=== PATIENT | male | born 1935 | race Caucasian/White ===

== ENCOUNTER 2016-10-11 04:57 | Inpatient (IN) | payer OTHER ==
[2016-09-21 14:04] VITALS: BMI 39.0
--- NOTE | 2016-09-21 14:44 | PAT Medication Instructions ---
Service Date Sep 21, 2016. Current Home Medication List Allopurinol (Zyloprim), 300 MG PO HS Amlodipine (Norvasc), 5 MG PO QAM Budesonide/Formoterol Fumarate (Symbicort 160/4.5 Inhaler ), 2 PUFFS INH BID Cyanocobalamin (Vitamin B-12), 1 TAB PO QAM Fish Oil ([place]-3), 1 CAP PO QAM Folic Acid (Folvite), 1 MG PO QAM Furosemide (Lasix), 40 MG PO QAM Polyethylene Glycol-Propylene (Systane), 1 DROPS OP QAM Potassium Chloride (Micro-K Ext Rel), 10 MEQ PO QAM Pramipexole Dihydrochloride (Pramipexole Dihydrochlori), 0.5 MG PO HS Pravastatin Sod (Pravastatin Sodium), 40 MG PO HS Pyridoxine (Vitamin B6), 100 MG PO QAM Tramadol (Ultram), 50 MG PO Q8H PRN for Pain Warfarin Sod (Jantoven), 2 MG PO HS Medication Instructions For Your Scheduled Surgery Warfarin Sod (Jantoven), 2 MG PO HS (per surgeon/coumadin clinic instructions) - Hold the following medications 2 weeks prior to surgery: Fish Oil ([place]-3), 1 CAP PO QAM - Hold the following medications the morning of surgery: Pyridoxine (Vitamin B6), 100 MG PO QAM Polyethylene Glycol-Propylene (Systane), 1 DROPS OP QAM Potassium Chloride (Micro-K Ext Rel), 10 MEQ PO QAM Furosemide (Lasix), 40 MG PO QAM Folic Acid (Folvite), 1 MG PO QAM Cyanocobalamin (Vitamin B-12), 1 TAB PO QAM - Take the following medications the morning of surgery with a sip of water: Tramadol (Ultram), 50 MG PO Q8H PRN for Pain (okay to take up to 4 hours prior to surgery if needed) Budesonide/Formoterol Fumarate (Symbicort 160/4.5 Inhaler ), 2 PUFFS INH BID Amlodipine (Norvasc), 5 MG PO QAM - Hold the following medications as scheduled the night before surgery: Pramipexole Dihydrochloride (Pramipexole Dihydrochlori), 0.5 MG PO HS - Take the following medications as scheduled the night before surgery: Tramadol (Ultram), 50 MG PO Q8H PRN for Pain Pravastatin Sod (Pravastatin Sodium), 40 MG PO HS Budesonide/Formoterol Fumarate (Symbicort 160/4.5 Inhaler ), 2 PUFFS INH BID Allopurinol (Zyloprim), 300 MG PO HS If you have any questions please call us at [phone] (Willow Gore PA-C) or [phone] or [phone]
[2016-09-21 15:11] LABS: BASO % 0.7 %; BASO ABS # 0.05 K/uL (0-0.2); COMPLETE YES; EOS % 3.4 %; HEMATOCRIT 40.9 % (42-52); IG% 0.1 %; LYMPH % 27.3 %; LYMPH ABS # 1.93 K/uL (1.2-3.4); MEAN CELL VOLUME 94.9 fL (80-100); MEAN CORPUSCULAR HEMOGLOBIN 32.9 pg (25-34); MEAN CORPUSCULAR HGB CONC 34.7 g/dl (32-36); MEAN PLATELET VOLUME 9.6 fL (7.4-10.4); NEUT % 59.5 %; PLATELET COUNT 197 K/uL (130-400); RED BLOOD COUNT 4.31 M/uL (4.7-6.1); WHITE BLOOD COUNT 7.08 K/uL (4.8-10.8)
[2016-09-21 15:12] LABS: URINE APPEARANCE CLEAR (CLEAR); URINE BILIRUBIN NEG (NEG); URINE COLOR YELLOW; URINE NITRITE NEG (NEG); URINE PH 7.5 (4.5-7.5); UROBILINOGEN NEG (NEG); ZZUR CULT IF INDIC CLEAN CATCH NO
[2016-09-21 15:15] LABS: MANUAL MICROSCOPIC REQUIRED? NO; REVIEW REQ? NO
[2016-09-21 15:20] LABS: INR 2.2 (0.9-1.1); PARTIAL THROMBOPLASTIN RATIO 1.3; PROTHROMBIN TIME (PATIENT) 24.9 SECONDS (9.0-12.0)
[2016-09-21 15:50] LABS: CALCIUM 9.6 mg/dl (8.5-10.1); CREATININE 1.2 mg/dl (0.60-1.40)
[2016-09-21 16:32] LABS: ESTIMATED AVERAGE GLUCOSE 94 mg/dl; HA1C FLAG Normal (Normal)
[2016-09-21 16:56] LABS: POTASSIUM 3.8 mmol/L (3.5-5.1)
--- NOTE | 2016-10-10 19:02 | HISTORY & PHYSICAL EXAMINATION ---
DATE OF ADMISSION: 10/11/2016 CHIEF COMPLAINT: Chronic right shoulder pain. HISTORY OF PRESENT ILLNESS: This is an 80-year-old male patient of Dr. Issa'héctor complaining of chronic right shoulder pain, longstanding, now progressively getting worse. 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 PAST MEDICAL HISTORY: Hypertension, history of blood clots, COPD, sleep apnea with the use of CPAP, DVT, osteoarthritis, spine problems, hernia and obesity. SOCIAL HISTORY: Nonsmoker and nondrinker. PAST SURGICAL HISTORY: Aortic aneurysm repair, hernia repair, left shoulder replacement and left knee replacement. ALLERGIES: No known drug allergies. MEDICATIONS: Furosemide 20 mg two tablets daily, allopurinol 300 mg daily, tramadol 50 mg q. 6 hours p.r.n., he uses CPAP, Coumadin 2 mg tablets 1 tablet daily with 1.5 tablet on Saturday, folic acid 1 mg 2 tablets daily, Symbicort 2 puffs by mouth b.i.d., polyethylene glycol Systane 0.4% 0.3% ophthalmic solution daily, Klor-Con 10 mg daily, pravastatin 40 mg daily, omega 3 fatty acids daily, amlodipine besylate 5 mg daily, vitamin B12 daily and paroxetine 50 mg daily. PHYSICAL EXAMINATION: GENERAL: Well-developed and well-nourished 80-year-old male, in no acute distress. He is alert, oriented x3 and pleasant. HEENT: Normocephalic and atraumatic. Extraocular motions are intact. Pupils are equal and reactive to light. HEART: Regular rate and rhythm, no murmurs appreciated. LUNGS: Clear. ABDOMEN: Soft, nontender, bowel sounds present. EXTREMITIES: Right shoulder reveals 3/5 strength with rotator cuff testing. He has got crepitation with limited range of motion. NEUROLOGIC: Neurovascularly, he is intact in his right upper extremity. 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 He also has a history of hypertension, blood clots, chronic obstructive pulmonary disease, sleep apnea with the use of CPAP, deep vein thrombosis, osteoarthritis, spine problems, hiatal hernia and obesity. PLAN: The patient was advised of his diagnosis. Indications, risks, benefits and postop course have all been reviewed. The patient wished to proceed with a right reversed total shoulder arthroplasty. Necessary consent forms, preoperative testing and clearances will be obtained. MTDD
[~2016-10-11] VITALS: Ht 170.2 cm; Wt 112.9 kg
[2016-10-11] VITALS (9 sets, daily range): BP systolic 99–146; BP diastolic 58–81; PULSE 74–87; TEMP 36.4–37; O2SAT 90–95; Ht 170.2 cm; Wt 112.9 kg
[~2016-10-11 04:57] MED LIST: ALLO300T2 PO; AMLO-110 PO; CYAN100048 PO; FOLI1TAB7 PO; FURO-85 PO; OMEG10007 PO; POLYSOL4 OP; POTA10CA28 PO; PRAM0.5T10 PO; PRVC/40 PO; PYRI100T4 PO; SYMIN160 INH; TRAM-10 PO; WARF2TAB8 PO
[2016-10-11] MEDS ORDERED: love (05:59)
[2016-10-11] MEDS ORDERED: Lovenox SQ (05:59)
[2016-10-11] MEDS ORDERED: LACTATED RINGER'S 1000ML 1,000 ML IV SCH (06:00)
[2016-10-11] MEDS ORDERED: ACETAMINOPHEN 500 MG TAB PO ONE (06:09)
[2016-10-11] MEDS ORDERED: DEXAMETHASONE 4 MG TAB ONE (06:09)
[2016-10-11] MEDS ORDERED: CeleBREX 200 MG CAP ONE (06:09)
[2016-10-11] MEDS ORDERED: FAMOTIDINE 20 MG TAB ONE (06:09)
[2016-10-11] MEDS ORDERED: METOCLOPRAMIDE HCL 10 MG TAB PO ONE (06:10)
[2016-10-11] MEDS ORDERED: CEFAZOLIN IV 2,000 MG/60 ML D5W IV ONE (06:10)
[2016-10-11] MEDS ORDERED: GABAPENTIN 300 MG CAP PO ONE (06:10)
[2016-10-11] MEDS ORDERED: BUPIVACAINE 0.5 % 5 MG/1 ML PF 10ML VIAL ONE (06:13)
[2016-10-11] MEDS ORDERED: MEPIVACAINE HCL 1.5% 30 ML VIAL ONE (06:13)
[2016-10-11 06:44] LABS: INR 1.3 (0.9-1.1); PARTIAL THROMBOPLASTIN RATIO 1.2; PROTHROMBIN TIME (PATIENT) 13.6 SECONDS (9.0-12.0)
[2016-10-11] MEDS ORDERED: NEOSTIGMINE METHYLSULFATE 5 MG/5 ML SYR ONE (06:49)
[2016-10-11] MEDS ORDERED: ROCURONIUM BROMIDE 10 MG/ML 5 ML VIAL ONE ×2 (06:49→09:34)
[2016-10-11] MEDS ORDERED: GLYCOPYRROLATE INJ 0.2 MG/ML VIAL ONE (06:49)
[2016-10-11] MEDS ORDERED: PROPOFOL IV EMULSION 10 MG/ML 20 ML VIAL IV ONE (06:49)
[2016-10-11] MEDS ORDERED: ONDANSETRON INJ 2 MG/ML 2 ML VIAL ONE (06:49)
[2016-10-11] MEDS ORDERED: DEXAMETHASONE SOD INJ 4 MG/ML VIAL ONE (06:49)
[2016-10-11] MEDS ORDERED: LIDOCAINE HCL 2% 2 ML VIAL (20MG/ML) ONE (06:49)
[2016-10-11] MEDS ORDERED: MIDAZOLAM HCL 1 MG/ML 2ML VIAL ONE (06:50)
[2016-10-11] MEDS ORDERED: FENTANYL CITRATE INJ 50 MCG/1 ML 2 ML VIAL ONE (06:50)
[2016-10-11] MEDS ORDERED: BACITRACIN 50000 UNIT VIAL ONE (06:54)
--- NOTE | 2016-10-11 06:57 | History & Physical Bridge Note ---
H&P Re-Evaluation Bridge Note: I have examined the patient, reviewed the History & Physical and in the interval since the performance of the History & Physical I have noted the following changes of clinical significance: No changes noted
[2016-10-11] MEDS ORDERED: LARYING-O-JET KIT (LTA) EXT ONE ×2 (07:59)
[2016-10-11] MEDS ORDERED: PHENYLEPHRINE 100MCG/ML 5ML SYR ONE (09:15)
[2016-10-11] MEDS ORDERED: EpHEDrine SULFATE 50MG/5ML SYR ONE (09:15)
[2016-10-11] MEDS ORDERED: METOCLOPRAMIDE HCL INJ 5 MG/ML 2 ML VIAL IV PRN (10:15)
[2016-10-11] MEDS ORDERED: PROMETHAZINE HCL INJ 12.5 MG in SODIUM CHLORIDE 0.9% 50ML 50 ML IV PRN (10:15)
[2016-10-11] MEDS ORDERED: ONDANSETRON INJ 2 MG/ML 2 ML VIAL IV PRN ×2 (10:15)
[2016-10-11] MEDS ORDERED: MoRPHine SULFATE 2 MG/ML CARP IV PRN (10:15)
[2016-10-11] MEDS ORDERED: BISACODYL 10 MG SUPP PR PRN (10:15)
[2016-10-11] MEDS ORDERED: OXYCODONE HCL IR 5 MG TAB (IMMEDIATE RELEASE) PO PRN (10:15)
[2016-10-11] MEDS ORDERED: LABETALOL HCL IV 5 MG/ML 20ML IV PRN (10:15)
[2016-10-11] MEDS ORDERED: FLUMAZENIL 0.1 MG/1 ML 10 ML VIAL IV PRN (10:15)
[2016-10-11] MEDS ORDERED: EpHEDrine SULFATE INJ 50 MG/ML AMP IV PRN (10:15)
[2016-10-11] MEDS ORDERED: ATROPINE SULFATE 0.1 MG/ML 5ML SYR IV PRN (10:15)
[2016-10-11] MEDS ORDERED: MAGNESIUM HYDROXIDE SUSP 30 ML UDC PO PRN (10:15)
[2016-10-11] MEDS ORDERED: TRAMADOL HCL 50 MG TAB PO PRN (10:15)
[2016-10-11] MEDS ORDERED: SOD PHOSPHATE/SOD BIPHOSPHATE ENEMA 132 ML BTL PR PRN (10:15)
[2016-10-11] MEDS ORDERED: NALOXONE HCL 0.4 MG/1 ML VIAL/CARP IV PRN ×2 (10:15)
--- NOTE | 2016-10-11 10:18 | [facility] Operative Report ---
Operative Report Operative Date Oct 11, 2016. 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 Post-Operative Diagnosis same chronic rotator cuff tear and tendinopahty and chronic ruptured bicep Procedure(s) Performed reversed total shoulder replacement right shoulder Surgeon Dr Issa Talent Sourcer Surgeon(s) Matthew Nelson PA-C Estimated Blood Loss 150cc Findings chronic supraspinatus tear and partial tear subscapularis and anterior instability pattern Specimens A: Humeral Head Drains 2 hemovac Anesthesia general and regional Complication(s) None Disposition Recovery Room / PACU Indications end stage djd oa chronic bursitis rotator cuff tendinopathy rotator cuff tear I attest to the content of the Intraoperative Record and any orders documented therein. Any exceptions are noted below.
--- NOTE | 2016-10-11 10:59 | DIAGNOSTIC IMAGING REPORT ---
RIGHT SHOULDER MIN 2 VIEWS ROUTINE CLINICAL HISTORY: Post shoulder surgery Right COMPARISON STUDY: Right shoulder 10/15/2012. FINDINGS: There is a reverse right total shoulder arthroplasty. The hardware appears intact. No fracture or dislocation. Skin león and surgical drains are in place. Right basilar subsegmental atelectasis. Possible trace right pleural effusion. IMPRESSION: Reversal right total shoulder arthroplasty. No evidence for hardware combination. Electronically signed by: Phoenix Christie M.D. 10/11/2016 10:57 AM Dictated Date/Time: 10/11/2016 10:57 AM
--- NOTE | 2016-10-11 11:09 | Anesthesiology Progress Note ---
Anesthesia Post Op Note Date & Time Oct 11, 2016 at 11:09 Vital Signs Pain Intensity: 0 Vital Signs Past 12 Hours Date Time Temp Pulse Resp B/P Pulse Ox O2 Delivery O2 Flow Rate FiO2 10/11/16 11:05 84 18 139/75 91 Nasal Cannula 4 10/11/16 10:55 36.5 83 18 135/79 95 Mask 4 10/11/16 10:45 85 18 143/79 95 Mask 5 10/11/16 10:35 86 22 141/67 95 Mask 5 10/11/16 10:25 91 20 135/84 95 Mask 10 10/11/16 10:18 36.6 90 20 136/76 96 Mask 10 10/11/16 05:38 37 77 18 146/81 92 Room Air Notes Mental Status: alert / awake / arousable, participated in evaluation Pt Amnestic to Procedure: Yes Nausea / Vomiting: adequately controlled Pain: adequately controlled Airway Patency, RR, SpO2: stable & adequate BP & HR: stable & adequate Hydration State: stable & adequate Anesthetic Complications: no major complications apparent
--- NOTE | 2016-10-11 11:12 | OPERATIVE REPORT ---
DATE OF OPERATION: 10/11/2016 INDICATION FOR PROCEDURE: The patient is an 80-year-old male who presents with chronic right shoulder pain and disability. He has history of osteoarthritis in his opposite shoulder, had a total shoulder replacement therapy. His right shoulder, he has severe progressive osteoarthritis, [id number] in the glenohumeral joint on plain x-rays. On MRI however he demonstrated significant rotator cuff tendinopathy, a small full thickness rotator cuff tear supraspinatus, marked tendinopathy of the rotator cuff with chronic massive subacromial bursitis. He has advanced degenerative arthritis in the glenohumeral joint with large joint effusion as well. PREOPERATIVE DIAGNOSIS: Right shoulder end-stage osteoarthritis with chronic rotator cuff tear, chronic bursitis and rotator cuff and biceps rupture. POSTOPERATIVE DIAGNOSIS: Same. PROCEDURE: Reverse total shoulder arthroplasty, right shoulder. SURGEON: Dr. Issa. LIFE SKILLS TRAINER: Matthew Nelson PA-C. ANESTHESIA: Regional block and general. OPERATIVE PROCEDURE: The patient was taken to the operating room after a regional block anesthetic placed under general anesthetic. He was positioned on the operating room table in a 40 degree beach chair position, a towel roll in the medial border of his right scapula. He was translated to right side of the bed to extend his shoulder off the bed and be able to rotate as necessary. He had a foam headrest placed. He had protective eyewear placed. A Villa catheter placed, SCDs and TEDs. Right shoulder exam demonstrated he had about 140 degrees of passive forward elevation, abduction only to about between 70 and 80 degrees and external rotation was to 290. Had some with relative anterior instability. Internal rotation was only about 70. His shoulder was then sterilely prepped and draped with ChloraPrep. An anterior deltopectoral approach was performed. Skin was incised sharply. Fat was divided down the fascia. The cephalic vein was dissected out and retracted laterally with the deltoid. Deltopectoral interval was dissected down to the clavipectoral fascia which was divided at the lateral margin of the conjoint tendon extended up to the CA ligament which was preserved. The falciform ligament, upper centimeter of the pectoralis was released for inferior exposure. This revealed a large subacromial bursal fluid collection. This was underlying the deltoid, acromion and overlying the rotator cuff, the supraspinatus. This bursa was resected completely revealing a longitudinal rotator cuff tear through the posterior aspect of the supraspinatus at the infraspinatus supraspinatus junction. Rotator cuff supraspinatus had tendinopathic frayed tissue but was still intact. The subscapularis tendon on its outer surface was intact and in good condition. Biceps sheath was markedly filled with another fluid collection, but there was no biceps tendon there. This synovitic tissue in the biceps sheath area was all resected. The circumflex vessels were identified, tied off with silk ties and divided laterally. The subscapularis muscle fibers were split at the level of the circumflex vessels leaving a cuff of tissue for protection of the axillary nerve inferiorly. The fibers were reflected off the inferior capsule using a Kitner elevator and a blunt Hohmann retractor was used to protect the axillary nerve. Rotator interval was opened up and the subscapularis was taken down with subperiosteal technique starting at the bicipital groove and dissecting medially until we reached the capsule and the capsule was released off the neck and the shoulder was gradually externally rotated exposing the inferior osteophytes of the humeral head. The humeral head was completely devoid of any articular surface. There was some inflammatory component to the arthritis. The osteophytes removed with an artist chisel and a rongeur. Then a Fukuda retractor was placed into the joint to retract the humeral head posteriorly. The capsule was released under direct visualization down to the glenoid with Caba scissors and then released off the anterior glenoid and the rotator interval tissue and capsule was released down to the glenoid with a 360 degree release of the subscapularis. A #1 Vicryl traction suture was placed into the subscapularis. A Bankart retractor was placed anteriorly then. The patient had a large degenerative labrum. This was all resected. There was no biceps tendon noted. The glenoid wear pattern was anterior superior wear consistent with rotator cuff insufficiency, completely [id number] at the anterior superior aspect of the glenoid, but still had some posterior inferior articular surface on the glenoid. An anterior inferior and posterior inferior release was performed with electrocautery on bone and a Devi elevator with the axillary nerve protected inferiorly with retractor. Then attention was taken to the humeral preparation. I first resected the degenerative supraspinatus tissue leaving the infraspinatus tendon and teres minor intact. The humeral head was exposed with extension and external rotation. The cutting guide was placed into the humeral head and the humeral head cut was made in 20 degrees of retroversion. Starting awl was used to open up the canal. Broaches were used and sized up to a 6, but final broaching with the trial implants 5 was a tight fit and fill and with the porous coating 6 would not be able to fit into the proximal metaphyseal region. I did a trial reduction with a +0 tray and a +6 head. Prior to this, we did prepare the glenoid. The humeral head was retracted posterior to the glenoid. The articular cartilage was curetted off and all labral tissue was debrided. Central drill hole was made into the glenoid. The glenoid reamer for a 29 mm baseplate was used for the Aequalis reversed II system. I placed 10 degrees of inferior tilt on the reamer. The central drill hole was widened for the post and the 29 mm hydroxyapatite coated reversed Tornier baseplate was impacted into position. It was transfixed with 18 and 20 mm compression screws and 32 mm locking screws superiorly and inferiorly. Excellent fixation with the screws and the post. A fan reamer was used for the 36 mm glenosphere. I chose to use a 2+ offset inferiorly. The eccentric glenosphere with 2+ offset was placed with the eccentric offset inferior. This was then screwed tightly, checked to be stable. We proceeded with the humeral preparation as dictated and then reduced the trial to the glenosphere demonstrating stable range of motion, good soft tissue tension and no shuck. The trial was removed and then three #5 FiberWire sutures were placed, starting in the bicipital groove and placing them transosseously through the humerus around the lesser tuberosity. After copious irrigation with antibiotic solution and bacitracin the final component was assembled which was the Aequalis Ascend flex 5B long stem assembled to the +0 high offset reversed tray assembled to the 36 mm, +6 reversed polyethylene insert. Final implant was impacted with a tight pressfit. It was reduced to the glenosphere and stability was documented and then after copious irrigation with antibiotic solution and bacitracin. The subscapularis tendon was repaired with #5 FiberWire sutures using Logan-Paul suture technique and then lateral row soft tissue repair with [id number] #2 FiberWire. The repair was secured through 45 degrees of external rotation, 80 degrees of abduction and forward elevation 140 degrees. The wound was irrigated copiously. The pectoralis tendon and falciform ligament was repaired with [id number] #2 FiberWire and 2 drains were placed and the deltopectoral interval was closed with interrupted [id number] #1 Vicryl sutures. Subcutaneous tissue closed with interrupted 2-0 Vicryl, skin closed with león. Sterile dressings applied. The patient tolerated the procedure well. ALBERTO Guerra was my first aid director and he functioned as first aid director performing tasks of arm positioning, instrument management, soft tissue retraction and performed the subcutaneous and skin closure, immobilizer application and will participate in postoperative care of the patient. I attest to the content of the Intraoperative Record and any orders documented therein. Any exceptio ns are noted below.
[2016-10-11] MEDS ORDERED: MoRPHine SULFATE 4 MG/ML 1 ML CARP\\VIAL IV PRN (13:15)
[2016-10-11] MEDS: D5W AND 1/2NSS + 20MEQ KCL 1,000 ML IV SCH ×2 (13:30→21:49)
[2016-10-11] MEDS: ACETAMINOPHEN 500 MG TAB PO SCH ×2 (13:34→21:49)
--- NOTE | 2016-10-11 14:41 | Medical Consult ---
Consultation Date of Consultation: Oct 11, 2016. Attending Physician: Russel Issa M.D. Reason for Consultation: medical mgmt History of Present Illness This is an 80 y/o male with PMHx of blood clots on Coumadin, mod COPD, YOLANDA on CPAP, AAA s/p repair, HTN, Dyslipidemia and other problems as outlined below who presents POD 0 s/p R TSA performed by Dr. Issa. Pt is doing well-post operatively. Not complaining of any pain. He tolerated lunch with no issues. Pt denies chest pain, palpitations, SOB, abd pain, N/V or calf pain. Past Medical/Surgical History Medical Problems: (1) AAA (abdominal aortic aneurysm) Permanent Comment: s/p repair Status: Chronic (2) COPD, moderate Status: Chronic (3) Dyslipidemia Status: Chronic (4) Gout Status: Chronic (5) History of pulmonary embolus (PE) Status: Chronic (6) HTN (hypertension) Status: Chronic (7) Methyltetrahydrofolate reductase mutation Status: Chronic (8) PHT (pulmonary hypertension) Status: Chronic (9) Protein S deficiency Status: Chronic Surgical Problems: (1) H/O cataract removal with insertion of prosthetic lens Status: Resolved (2) History of AAA (abdominal aortic aneurysm) repair Status: Resolved (3) History of ear surgery Permanent Comment: remove cholesteoma L ear Status: Resolved (4) History of inguinal hernia repair Permanent Comment: 2011 Status: Resolved (5) Hx of total knee arthroplasty Permanent Comment: L knee 2009 Status: Resolved Social History Smoking Status: Former Smoker (40 packyear history; quit 1995) Alcohol Use: none Drug Use: none Marital Status: Housing Status: lives with family Occupation Status: retired Allergies Coded Allergies: No Known Allergies (Unverified , 10/11/16) Home Medications Active Reported [Lovenox] SQ BID Vitamin B6 (Pyridoxine HCl) 100 Mg Tab 100 Mg PO QAM Vitamin B-12 (Cyanocobalamin) 1,000 Mcg Sub 1,000 Mcg PO QAM Norvasc (Amlodipine Besylate) 5 Mg Tab 5 Mg PO QAM Grant-3 (Fish Oil) 1 Ea Cap 1 Cap PO QAM Pramipexole Dihydrochlori (Pramipexole Dihydrochloride) 0.5 Mg Tab 0.5 Mg PO HS Pravastatin Sodium (Pravastatin Sod) 40 Mg Tab 40 Mg PO HS Micro-K Ext Rel (Potassium Chloride) 10 Meq Capcr 10 Meq PO QAM Systane (Polyethylene Glycol-Propylene) 1 Ya Ya 1 Drops OP QAM Symbicort 160/4.5 Inhaler (Budesonide/Formoterol Fumarate) Aero 2 Puffs INH BID Folvite (Folic Acid) 1 Mg Tab 1 Mg PO QAM Jantoven (Warfarin Sodium) 2 Mg Tab 2 Mg PO HS WILL BE BRIDGING PER COUMADIN CLINIC Ultram (Tramadol HCl) 50 Mg Tab 50 Mg PO Q8H PRN Zyloprim (Allopurinol) 300 Mg Tab 300 Mg PO HS Lasix (Furosemide) 20 Mg Tab 40 Mg PO QAM Current Inpatient Medications Current Inpatient Medications Medications (Trade) Dose Ordered Sig/Maryan Route Start Time Stop Time Status Last Admin Dose Admin Naloxone HCl (Narcan Inj) 0.2 mg Q2M PRN IV 10/11/16 10:15 10/11/16 15:15 Flumazenil (Romazicon Inj) 0.2 mg Q2M PRN IV 10/11/16 10:15 10/11/16 15:15 Ondansetron HCl (Zofran Inj) 4 mg ONE PRN IV 10/11/16 10:15 10/11/16 15:15 Labetalol HCl (Normodyne IV) 5 mg Q5M PRN IV 10/11/16 10:15 10/11/16 15:15 Ephedrine Sulfate (EpHEDrine SULFATE INJ) 5 mg Q5M PRN IV 10/11/16 10:15 10/11/16 15:15 Atropine Sulfate (Atropine Sulfate 0.1MG/Ml Inj) 0.5 mg Q1M PRN IV 10/11/16 10:15 10/11/16 15:15 Allopurinol (Zyloprim Tab) 300 mg HS PO 10/11/16 21:00 11/10/16 20:59 Amlodipine Besylate (Norvasc Tab) 5 mg QAM PO 10/12/16 09:00 11/11/16 08:59 Budesonide/ Formoterol Fumarate (Symbicort 160/ 4.5 Inh) 2 puffs BID INH 10/11/16 21:00 11/10/16 20:59 Folic Acid (Folvite Tab) 1 mg QAM PO 10/12/16 09:00 11/11/16 08:59 Furosemide (Lasix Tab) 40 mg QAM PO 10/12/16 09:00 11/11/16 08:59 Potassium Chloride (Klor-Con M10) 10 meq QAM PO 10/12/16 09:00 11/11/16 08:59 Pramipexole Dihydrochloride (miraPEX TAB) 0.5 mg HS PO 10/11/16 21:00 11/10/16 20:59 Pravastatin Sodium (Pravachol Tab) 40 mg HS PO 10/11/16 21:00 11/10/16 20:59 Pyridoxine HCl (Vitamin B-6 Tab) 100 mg QAM PO 10/12/16 09:00 11/11/16 08:59 Tramadol HCl (Ultram Tab) 50 mg Q8H PRN PO 10/11/16 10:15 11/10/16 10:14 Cyanocobalamin (Vitamin B-12 Tab) 1,000 mcg QAM PO 10/12/16 09:00 11/11/16 08:59 Artificial Tears (Artificial Tears) 1 drops QAM OP 10/12/16 09:00 11/11/16 08:59 Enoxaparin Sodium (Lovenox Inj) 40 mg QAM SQ 10/12/16 09:00 11/11/16 08:59 Diphenhydramine HCl (Benadryl Cap) 25 mg Q8 PRN PO 10/11/16 10:15 11/10/16 10:14 Zolpidem Tartrate (Ambien Tab) 5 mg HSZ PRN PO 10/11/16 10:15 11/10/16 10:14 Metoclopramide HCl (Reglan Inj) 10 mg Q6H PRN IV 10/11/16 10:15 11/10/16 10:14 Ondansetron HCl (Zofran Inj) 4 mg Q6H PRN IV 10/11/16 10:15 11/10/16 10:14 Pantoprazole Sodium 40 mg 40 mg QAM PO 10/12/16 09:00 11/11/16 08:59 Potassium Chloride/Dextrose/ Sod Cl (D5W And 1/2nss + 20meq KCl) 1,000 ml @ 100 mls/hr Q10H IV 10/11/16 12:30 10/12/16 12:29 10/11/16 13:30 100 MLS/HR Oxycodone HCl (Roxicodone Immediate Rel Tab) `1-2 TABS FOR PAIN `1 TAB... Q4H PRN PO 10/11/16 10:15 10/25/16 10:14 Acetaminophen (Tylenol Tab) 1,000 mg Q8 PO 10/11/16 14:00 11/10/16 13:59 10/11/16 13:34 1,000 MG Morphine Sulfate (MoRPHine SULFATE INJ) 2 mg Q2H PRN IV 10/11/16 10:15 10/25/16 10:14 Naloxone HCl (Narcan Inj) 0.1 mg Q2M PRN IV 10/11/16 10:15 11/10/16 10:14 Magnesium Hydroxide (Milk Of Magnesia Susp) 30 ml Q6H PRN PO 10/11/16 10:15 11/10/16 10:14 Bisacodyl (Dulcolax Supp) 10 mg DAILY PRN IA 10/11/16 10:15 11/10/16 10:14 Sodium Biphosphate/ Sodium Phosphate (Fleet Enema) 132 ml DAILY PRN IA 10/11/16 10:15 11/10/16 10:14 Docusate Sodium (coLACE CAP) 100 mg BID PO 10/11/16 21:00 11/10/16 20:59 Multivitamins 1 tab 1 tab DAILY PO 10/12/16 09:00 11/11/16 08:59 Cefazolin Sodium/ Dextrose (Ancef Iv/D5 50ml) 60 ml @ 100 mls/hr Q8H IV 10/11/16 18:00 10/12/16 02:35 Morphine Sulfate (MoRPHine SULFATE INJ) 4 mg Q2H PRN IV 10/11/16 13:15 10/25/16 13:14 Review of Systems Constitutional: No chills, No fatigue, No fever, No sweats, No weakness Eyes: No worsening of vision ENT: No hearing loss Respiratory: No cough, No shortness of breath Cardiovascular: + edema (chronic), No chest pain, No claudication, No palpitations Abdomen: No constipation, No diarrhea, No nausea, No pain, No vomiting Musculoskeletal: No calf pain Genitourinary - Male: + problem reported (burton catheter) Neurologic: No weakness Psychiatric: No depression symptoms Endocrine: No fatigue Hematologic / Lymphatic: No abnormal bleeding/bruising Integumentary: No new/changing skin lesions Physical Exam Date Time Temp Pulse Resp B/P Pulse Ox O2 Delivery O2 Flow Rate FiO2 10/11/16 12:56 82 18 127/63 93 Nasal Cannula 4.0 10/11/16 12:18 36.6 82 16 128/75 91 Nasal Cannula 4.0 10/11/16 11:50 90 Nasal Cannula 4.0 10/11/16 11:50 37.0 81 22 123/75 90 Nasal Cannula 4.0 10/11/16 11:50 90 Nasal Cannula 4.0 10/11/16 11:32 83 18 129/80 91 Nasal Cannula 4 10/11/16 11:20 84 18 135/80 91 Nasal Cannula 4 10/11/16 11:05 84 18 139/75 91 Nasal Cannula 4 10/11/16 10:55 36.5 83 18 135/79 95 Mask 4 10/11/16 10:45 85 18 143/79 95 Mask 5 10/11/16 10:35 86 22 141/67 95 Mask 5 10/11/16 10:25 91 20 135/84 95 Mask 10 10/11/16 10:18 36.6 90 20 136/76 96 Mask 10 10/11/16 05:38 37 77 18 146/81 92 Room Air General Appearance: WD/WN, no apparent distress, + pertinent finding (Pt is sitting up in bed with family at bedside ) Head: normocephalic, atraumatic Eyes: normal inspection ENT: hearing grossly normal Neck: supple Respiratory/Chest: chest non-tender, lungs clear, normal breath sounds, no respiratory distress Cardiovascular: regular rate, rhythm, no murmur Abdomen/GI: normal bowel sounds, non tender, soft Genitourinary - Male: + pertinent finding (burton in place) Back: normal inspection Extremities/Musculoskelatal: normal inspection, no calf tenderness, + pertinent finding (dressing in place over R shoulder with 1 drain noted containing blood; 1+ edema to bilat lower extremities ) Neurologic/Psych: alert, normal mood/affect, oriented x 3 Skin: normal color, warm/dry Laboratory Results Last 24 Hours Test 10/11/16 06:25 Prothrombin Time 13.6 SECONDS Prothromb Time International Ratio 1.3 Activated Partial Thromboplast Time 30.2 SECONDS Partial Thromboplastin Ratio 1.2 Assessment & Plan R SHOULDER OA S/P R TSA -POD 0; surgery performed by Dr. Issa -post-operative pain well managed -monitor for acute blood loss with daily H&H -pt encouraged to utilize spirometry to prevent post-op infection -hold Coumadin until cleared with surgical team -PT/OT -activity and wound care orders per ortho protocol -will continue to follow MODERATE COPD -no evidence of acute exacerbation -cont inhalers YOLANDA ON CPAP -may use CPAP from home H/O PE -high VTE risk due to protein S deficiency -re-start Coumadin when cleared by surgical team -monitor AAA -s/p open repair HTN -BP stable -cont amlodipine -monitor DYSLIPIDEMIA -cont statin DVT PROPHYLAXIS -per ortho protocol CODE STATUS -FULL CODE status DISPO -per ortho. Pt seen in collaboration with Dr. Denise. Please see her addendum for further details. Thanks! -Of note: patient will be followed by Dr. Owens starting tomorrow AM. Thank you for this consultation. We will follow the patient with you during their hospital stay. You can reach a member of the [facility] Hospitalist Team 25/02 via pager @ [phone]. ADDENDUM: I have seen and examined the patient and have discussed the case with the provider above. I agree with the assessment and plan as stated. Howie, DO
[2016-10-11] MEDS ORDERED: WARFARIN SOD 2.5 MG TAB PO SCH (16:00)
[2016-10-11] MEDS: CEFAZOLIN IV 2,000 MG in DEXTROSE 5% 50ML 50 ML IV SCH (17:52)
[2016-10-11] MEDS: PRAMIPEXOLE DIHYDROCHLORIDE 0.5 MG TAB PO SCH (20:36)
[2016-10-11] MEDS: PRAVASTATIN SOD 40 MG TAB PO SCH (20:36)
[2016-10-11] MEDS: ALLOPURINOL 300 MG TAB PO SCH (20:36)
[2016-10-11] MEDS: BUDESONIDE/FORMOTEROL FUMARATE 160/4.5 60 PUFFS/INHALER INH SCH (20:36)
[2016-10-11] MEDS: DOCUSATE SODIUM 100 MG CAP PO SCH (20:36)
[2016-10-11] MEDS: ZOLPIDEM TARTRATE 5 MG TAB PO PRN (23:52)
[2016-10-12] VITALS (7 sets, daily range): BP systolic 104–173; BP diastolic 58–93; PULSE 62–98; TEMP 36.4–36.7; O2SAT 92–96
[2016-10-12] MEDS: ZOLPIDEM TARTRATE 5 MG TAB PO PRN (00:47)
[2016-10-12] MEDS: CEFAZOLIN IV 2,000 MG in DEXTROSE 5% 50ML 50 ML IV SCH (02:38)
[2016-10-12] MEDS ORDERED: COUGH DROP (SUGAR FREE) LOZ 24 LOZ/1 BOX ONE (05:55)
[2016-10-12] MEDS: ACETAMINOPHEN 500 MG TAB PO SCH ×3 (05:56→20:50)
[2016-10-12 06:09] LABS: HEMATOCRIT 33.8 % (42-52); MEAN CELL VOLUME 93.4 fL (80-100); MEAN CORPUSCULAR HEMOGLOBIN 32.3 pg (25-34); MEAN CORPUSCULAR HGB CONC 34.6 g/dl (32-36); MEAN PLATELET VOLUME 9.8 fL (7.4-10.4); PLATELET COUNT 170 K/uL (130-400); RED BLOOD COUNT 3.62 M/uL (4.7-6.1); WHITE BLOOD COUNT 13.43 K/uL (4.8-10.8)
[2016-10-12] MEDS ORDERED: COUGH DROP (SUGAR FREE) LOZ 24 LOZ/1 BOX PO PRN (06:15)
[2016-10-12 06:35] LABS: BUN/CREATININE RATIO 16.9 (10-20); CREATININE 1.2 mg/dl (0.60-1.40); POTASSIUM 4.3 mmol/L (3.5-5.1)
--- NOTE | 2016-10-12 07:56 | Anesthesiology Progress Note ---
Anesthesia Post Op Note Date & Time Oct 12, 2016 at 07:56 Vital Signs Pain Intensity: 0.0 Vital Signs Past 12 Hours Date Time Temp Pulse Resp B/P Pulse Ox O2 Delivery O2 Flow Rate FiO2 10/12/16 07:53 36.6 68 18 114/68 96 Room Air 10/12/16 07:05 Nasal Cannula 2.0 10/12/16 02:50 36.4 62 20 129/73 93 Nasal Cannula 3.0 10/11/16 23:40 Nasal Cannula 3.0 CPAP 10/11/16 22:55 37.0 74 20 119/69 91 Nasal Cannula 3.0 Notes Mental Status: alert / awake / arousable, participated in evaluation Pt Amnestic to Procedure: Yes Nausea / Vomiting: adequately controlled Pain: adequately controlled Airway Patency, RR, SpO2: stable & adequate BP & HR: stable & adequate Hydration State: stable & adequate Anesthetic Complications: no major complications apparent
[2016-10-12] MEDS: BUDESONIDE/FORMOTEROL FUMARATE 160/4.5 60 PUFFS/INHALER INH SCH ×2 (08:54→20:50)
[2016-10-12] MEDS: MULTIVITAMIN TAB PO SCH (08:54)
[2016-10-12] MEDS: CYANOCOBALAMIN 500 MCG TAB (VIT B-12) PO SCH (08:55)
[2016-10-12] MEDS: DOCUSATE SODIUM 100 MG CAP PO SCH ×2 (08:55→20:50)
[2016-10-12] MEDS: FUROSEMIDE 40 MG TAB PO SCH (08:55)
[2016-10-12] MEDS: POTASSIUM CHLORIDE 10 MEQ TABCR PO SCH (08:55)
[2016-10-12] MEDS: PANTOprazole SOD 40 MG TAB PO SCH (08:56)
[2016-10-12] MEDS: AMLODIPINE BESYLATE 5 MG TAB PO SCH (08:56)
[2016-10-12] MEDS: PYRIDOXINE HCL 50 MG TAB PO SCH (08:56)
--- NOTE | 2016-10-12 08:56 | Orthopedic Progress Note ---
Orthopedic Progress Note Date of Service Oct 12, 2016. Subjective Post OP Day: 1 Reports: feeling well, pain controlled w PO medications, Denies: SOB, calf pain , chest pain, complaints, light headedness, nausea / vomiting Objective calves soft nontender, N/V intact, capillary refill less than 2 sec., dressing C /D/I, A&O x3 Sling in tact, fingers mobile. Date Time Temp Pulse Resp B/P Pulse Ox O2 Delivery O2 Flow Rate FiO2 10/12/16 08:42 96 Nasal Cannula 2.0 10/12/16 07:53 36.6 68 18 114/68 96 Nasal Cannula 2.0 10/12/16 07:05 Nasal Cannula 2.0 10/12/16 02:50 36.4 62 20 129/73 93 Nasal Cannula 3.0 10/11/16 23:40 Nasal Cannula 3.0 CPAP 10/11/16 22:55 37.0 74 20 119/69 91 Nasal Cannula 3.0 10/11/16 19:30 Nasal Cannula 3.0 10/11/16 18:54 36.8 78 18 99/59 95 Nasal Cannula 3.0 10/11/16 15:39 36.4 77 18 112/69 94 Nasal Cannula 4.0 10/11/16 14:40 36.4 82 17 104/63 93 Nasal Cannula 4.0 10/11/16 13:44 36.7 87 17 126/58 93 Nasal Cannula 4.0 10/11/16 12:56 82 18 127/63 93 Nasal Cannula 4.0 10/11/16 12:18 36.6 82 16 128/75 91 Nasal Cannula 4.0 10/11/16 11:50 90 Nasal Cannula 4.0 10/11/16 11:50 37.0 81 22 123/75 90 Nasal Cannula 4.0 10/11/16 11:50 90 Nasal Cannula 4.0 10/11/16 11:32 83 18 129/80 91 Nasal Cannula 4 10/11/16 11:20 84 18 135/80 91 Nasal Cannula 4 10/11/16 11:05 84 18 139/75 91 Nasal Cannula 4 10/11/16 10:55 36.5 83 18 135/79 95 Mask 4 10/11/16 10:45 85 18 143/79 95 Mask 5 10/11/16 10:35 86 22 141/67 95 Mask 5 10/11/16 10:25 91 20 135/84 95 Mask 10 10/11/16 10:18 36.6 90 20 136/76 96 Mask 10 Laboratory Results 24 Hours: Test 10/12/16 05:41 Hematocrit 33.8 % Hemoglobin 11.7 g/dL Assessment & Plan Assessment: POD #1, Rt reversed TSA Plan: Limited PT as ordered DVT proph- Coumadin with Lovenox bridging D/C plans- Home w home exercises only, NO formal PT needed at this point. Appreciate medical input. Inhouse Planning Pain Management: Ultram, Morphine, PO Tylenol, Oxy IR DVT Prophylaxis: SCDs, Coumadin, Lovenox Discharge Planning Discharge Planning: home Pain Management: PO Tylenol, Oxy IR DVT Prophylaxis: Coumadin, Lovenox
[2016-10-12] MEDS: ENOXAPARIN 40 MG/0.4 ML SYR SQ SCH (08:57)
[2016-10-12] MEDS: D5W AND 1/2NSS + 20MEQ KCL 1,000 ML IV SCH (08:58)
--- NOTE | 2016-10-12 08:59 | Discharge Instructions ---
Discharge Instructions Date of Service Oct 12, 2016. Admission Reason for Admission: Right Shoulder Degenerative Joint Disease Discharge Discharge Diagnosis / Problem: Right reversed TSA Discharge Goals Goal(s): Improve function Activity Recommendations Activity Limitations: as noted below . Instructions / Follow-Up Instructions / Follow-Up ACTIVITY RECOMMENDATIONS: SELF CARE INSTRUCTIONS AFTER TOTAL SHOULDER ARTHROPLASTY REVERSE A. You may do daily exercises as taught in physical therapy while in hospital. No lifting with the operative arm. B. You are to wear your sling/immobilizer at all times EXCEPT when performing your daily exercises and for hygiene purposes. C. You may perform dry, daily dressing changes. Please keep your incision covered. You may shower 48 hours after surgery. Do not apply soap or any ointment/ lotions directly over incision. Do not soak incision in bath tub/swimming pool. D. You may use ice as needed to operative shoulder. SPECIAL CARE INSTRUCTIONS: VERY IMPORTANT TO READ AND REVIEW A. There are a few signs you need to watch for after you are home. Call [facility] at [phone] if you experience any of the followin. Increased severe shoulder pain. Some pain is expected especially when you exercise. 2. Increased swelling in you shoulder or arm; pain or swelling in either upper extremity. 3. Any fluid drainage from the incision. 4. Shortness of breath or chest pain. B. Please call [facility] at [phone] if you have any questions or concerns about your operation or recovery. C. Call your physician if: 1. Temperature is greater than 101 degrees (F). 2. Pain is not relieved by prescribed pain medications. 3. Increase drainage or redness from incision. 4. Unanswered questions or concerns. FOLLOW UP VISIT: Please call [facility] at [phone] to schedule a follow up appointment with Dr. Issa or his PA in 12-14 days from your surgery date. CONTACT YOUR PCP OR COUMADIN CLINIC SATURDAY TO ARRANGE COUMADIN MONITORING, USE LOVENOX UNTIL INSTRUCTED TO STOP WHEN COUMADIN IS THERAPEUTIC, PER COUMADIN CLINIC. Current Hospital Diet Patient's current hospital diet: Regular Diet Discharge Diet Recommended Diet: Regular Diet Procedures Procedures Performed: Right Reverse Total Shoulder Arthroplasty Pending Studies Studies pending at discharge: no Laboratory Results Hemoglobin A1c Test 09/21/16 14:54 Range/Units Estimated Average Glucose 94 mg/dl Hemoglobin A1c 4.9 4.5-5.6 % Medical Emergencies . Who to Call and When: Medical Emergencies: If at any time you feel your situation is an emergency, please call 911 immediately. . Non-Emergent Contact Non-Emergency issues call your: Primary Care Provider . "Provider Documentation" section prepared by Matthew Nelson. VTE Core Measure Inpt VTE Proph given/why not?: Enoxaparin (Lovenox)SQ, Warfarin (Coumadin), SCD 's [place] Drug Monitoring Program Search Results: patient reviewed within database, no issues identified
[2016-10-12] MEDS: ARTIFICIAL TEARS OP SOLN OP SCH ×2 (09:00)
[2016-10-12 09:47] LABS: INR 1.3 (0.9-1.1); PROTHROMBIN TIME (PATIENT) 14.1 SECONDS (9.0-12.0)
--- NOTE | 2016-10-12 15:04 | Progress Note ---
Internal Med Progress Note Date of Service: Oct 12, 2016. Provider Documentation: SUBJECTIVE: feels fine , no complain of chest pain or SOB no fever or chills OBJECTIVE: Vital Signs-as noted below Exam: General- no sign of distress Eyes-sclera non icteric ENT-NAD Neck- no thyromegaly , trachea midline Lungs-CTA Heart-regular S1/S2 Abdomen-soft, non tender Extremities-s/p rt shoulder repair , sling present Neuro-no focal neurological deficit Lab data as noted below. ASSESSMENT & PLAN: R SHOULDER OA S/P R TSA -POD #1 ; surgery performed by Dr. Issa -post-operative pain well managed -pt encouraged to utilize spirometry to prevent post-op atelectasis -started on Coumadin with Lovenox bridge by Ortho team team MODERATE COPD -no evidence of acute exacerbation -cont inhalers -utilize spirometry YOLANDA ON CPAP -may use CPAP from home H/O PE -high VTE risk due to protein S deficiency -started on Coumadin with Lovenox bridge -daily PT/INR AAA -s/p open repair HTN -BP stable -cont amlodipine -monitor DYSLIPIDEMIA -cont statin DVT PROPHYLAXIS -per ortho protocol CODE STATUS -FULL CODE status DISPOSITION per ortho team Vital Signs: Date Time Temp Pulse Resp B/P Pulse Ox O2 Delivery O2 Flow Rate FiO2 10/12/16 14:57 36.4 98 18 173/93 92 Room Air 10/12/16 11:55 36.5 72 16 114/70 96 Nasal Cannula 2.0 10/12/16 08:42 96 Nasal Cannula 2.0 10/12/16 07:53 36.6 68 18 114/68 96 Nasal Cannula 2.0 10/12/16 07:05 Nasal Cannula 2.0 10/12/16 02:50 36.4 62 20 129/73 93 Nasal Cannula 3.0 10/11/16 23:40 Nasal Cannula 3.0 CPAP 10/11/16 22:55 37.0 74 20 119/69 91 Nasal Cannula 3.0 10/11/16 19:30 Nasal Cannula 3.0 10/11/16 18:54 36.8 78 18 99/59 95 Nasal Cannula 3.0 10/11/16 15:39 36.4 77 18 112/69 94 Nasal Cannula 4.0 Lab Results: Results Past 24 Hours Test 10/12/16 05:41 10/12/16 09:20 Range/Units White Blood Count 13.43 4.8-10.8 K/uL Red Blood Count 3.62 4.7-6.1 M/uL Hemoglobin 11.7 14.0-18.0 g/dL Hematocrit 33.8 42-52 % Mean Corpuscular Volume 93.4 80-100 fL Mean Corpuscular Hemoglobin 32.3 25-34 pg Mean Corpuscular Hemoglobin Concent 34.6 32-36 g/dl RDW Standard Deviation 46.8 36.4-46.3 fL RDW Coefficient of Variation 13.6 11.5-14.5 % Platelet Count 170 130-400 K/uL Mean Platelet Volume 9.8 7.4-10.4 fL Sodium Level 137 136-145 mmol/L Potassium Level 4.3 3.5-5.1 mmol/L Chloride Level 103 98-107 mmol/L Carbon Dioxide Level 24 21-32 mmol/L Anion Gap 10.0 3-11 mmol/L Blood Urea Nitrogen 20 7-18 mg/dl Creatinine 1.20 0.60-1.40 mg/dl Est Creatinine Clear Calc Drug Dose 56.9 ml/min Estimated GFR () 64.9 Estimated GFR (Non- 56.0 BUN/Creatinine Ratio 16.9 10-20 Random Glucose 166 70-99 mg/dl Calcium Level 9.0 8.5-10.1 mg/dl Prothrombin Time 14.1 9.0-12.0 SECONDS Prothromb Time International Ratio 1.3 0.9-1.1
[2016-10-12] MEDS ORDERED: WARFARIN SOD 3 MG TAB PO ONE (16:00)
[2016-10-12] MEDS: ALLOPURINOL 300 MG TAB PO SCH (20:50)
[2016-10-12] MEDS: PRAVASTATIN SOD 40 MG TAB PO SCH (20:50)
[2016-10-12] MEDS: PRAMIPEXOLE DIHYDROCHLORIDE 0.5 MG TAB PO SCH (20:50)
[2016-10-13 05:38] LABS: HEMATOCRIT 34.1 % (42-52); MEAN CELL VOLUME 92.9 fL (80-100); MEAN CORPUSCULAR HEMOGLOBIN 31.9 pg (25-34); MEAN CORPUSCULAR HGB CONC 34.3 g/dl (32-36); MEAN PLATELET VOLUME 9.6 fL (7.4-10.4); PLATELET COUNT 179 K/uL (130-400); RED BLOOD COUNT 3.67 M/uL (4.7-6.1); WHITE BLOOD COUNT 11.15 K/uL (4.8-10.8)
[2016-10-13 05:45] LABS: INR 1.5 (0.9-1.1); PROTHROMBIN TIME (PATIENT) 15.8 SECONDS (9.0-12.0)
[2016-10-13 05:56] LABS: BUN/CREATININE RATIO 20.4 (10-20); CALCIUM 8.5 mg/dl (8.5-10.1); CREATININE 1.1 mg/dl (0.60-1.40); POTASSIUM 3.9 mmol/L (3.5-5.1)
[2016-10-13] MEDS: ACETAMINOPHEN 500 MG TAB PO SCH (06:00)
[2016-10-13 07:45] VITALS: BP 124/84; PULSE 77; TEMP 36.6; O2SAT 96
[2016-10-13] MEDS: BUDESONIDE/FORMOTEROL FUMARATE 160/4.5 60 PUFFS/INHALER INH SCH (08:18)
[2016-10-13] MEDS: DOCUSATE SODIUM 100 MG CAP PO SCH (08:19)
[2016-10-13] MEDS: CYANOCOBALAMIN 500 MCG TAB (VIT B-12) PO SCH (08:19)
[2016-10-13] MEDS: AMLODIPINE BESYLATE 5 MG TAB PO SCH (08:19)
[2016-10-13] MEDS: FUROSEMIDE 40 MG TAB PO SCH (08:19)
[2016-10-13] MEDS: PYRIDOXINE HCL 50 MG TAB PO SCH (08:20)
[2016-10-13] MEDS: POTASSIUM CHLORIDE 10 MEQ TABCR PO SCH (08:20)
[2016-10-13] MEDS: MULTIVITAMIN TAB PO SCH (08:21)
[2016-10-13] MEDS: ARTIFICIAL TEARS OP SOLN OP SCH ×2 (08:21)
[2016-10-13] MEDS: PANTOprazole SOD 40 MG TAB PO SCH (08:21)
[2016-10-13] MEDS: ENOXAPARIN 40 MG/0.4 ML SYR SQ SCH (09:04)
[2016-10-13 09:28] VITALS: O2SAT 96
--- NOTE | 2016-10-13 09:45 | Orthopedic Progress Note ---
Orthopedic Progress Note Date of Service Oct 13, 2016. Subjective Post OP Day: 2 Reports: feeling well, pain controlled w PO medications, Denies: complaints Objective N/V intact, capillary refill less than 2 sec., dressing C/D/I, A&O x3 RUE in sling. Right UE NV intact, fingers mobile. Date Time Temp Pulse Resp B/P Pulse Ox O2 Delivery O2 Flow Rate FiO2 10/13/16 09:28 96 Room Air 10/13/16 07:45 36.6 77 22 124/84 96 Room Air 10/12/16 23:20 Room Air 10/12/16 22:54 36.7 66 16 135/86 92 Room Air 10/12/16 15:45 Room Air 10/12/16 15:38 92 104/58 10/12/16 14:57 36.4 98 18 173/93 92 Room Air 10/12/16 11:55 36.5 72 16 114/70 96 Nasal Cannula 2.0 Laboratory Results 24 Hours: Test 10/13/16 05:15 Hematocrit 34.1 % Hemoglobin 11.7 g/dL Prothromb Time International Ratio 1.5 Prothrombin Time 15.8 SECONDS Assessment & Plan Assessment: POD #2, Rt reversed TSA Plan: Plan for d/c home today. Limited PT as ordered DVT proph- Coumadin with Lovenox bridging D/C plans- Home w home exercises only, NO formal PT needed at this point. Appreciate medical input. Inhouse Planning Pain Management: Ultram, Morphine, PO Tylenol, Oxy IR DVT Prophylaxis: SCDs, Coumadin, Lovenox Discharge Planning Discharge Planning: home Pain Management: PO Tylenol, Oxy IR DVT Prophylaxis: Coumadin, Lovenox
[2016-10-13] MEDS ORDERED: ACET-1138 PO (09:51)
[2016-10-13] MEDS ORDERED: RXC5 PO (09:51)
[2016-10-13] MEDS ORDERED: ONDA8TAB6 PO (09:51)
[2016-10-13] MEDS ORDERED: Lovenox SQ (09:51)
[2016-10-13] MEDS ORDERED: WARF2TAB8 PO (09:51)
[2016-10-13 10:21] VITALS: BP 124/84; PULSE 77; TEMP 36.6; O2SAT 96
[2016-10-13] MEDS ORDERED: WARFARIN SOD 3 MG TAB PO SCH (16:00)
--- NOTE | 2016-10-25 11:07 | DISCHARGE SUMMARY ---
HISTORY OF PRESENT ILLNESS: This is an 80-year-old male patient of Dr. Issa'héctor complaining of chronic right shoulder pain, longstanding, progressively getting worse who has been diagnosed with end-stage osteoarthritis with insufficient rotator cuff and elected to proceed with reverse total shoulder arthroplasty on the right. PAST MEDICAL HISTORY: Hypertension, history of blood clots, COPD, sleep apnea with the use of CPAP, DVT, osteoarthritis, spine problems, hernia and obesity. POSTOPERATIVE COURSE: The patient underwent a right reversed total shoulder arthroplasty on 10/11/2016. He was followed closely with medical consultation. He was resumed on his DVT prophylaxis in the form of Coumadin and Lovenox bridging. He did limit his physical therapy and was under pain medications for pain control. The patient did well postoperatively and was discharged home on postoperative day #2. PHYSICAL EXAMINATION: On discharge right shoulder incision was clean, dry and intact. [place] were intact. Skin edges were approximated well. There was no redness or drainage. Neurologically and neurovascularly he was intact in his right upper extremity. DIAGNOSIS: Status post right reverse total shoulder arthroplasty. He also has a history of hypertension, blood clots, COPD, sleep apnea with the use of CPAP, osteoarthritis, spine problems, hernia and obesity. PLAN: The patient was discharged home with home nursing care. He will continue his Coumadin with Lovenox bridging. He will contact his Coumadin clinic or his PCP within the next several days to monitor his INR, most likely will stop Lovenox bridging once his INR has hit 1.8 to 2.0. Again, this will be monitored by his family physician or his Coumadin clinic. He was given pain control medications. He will follow up as an outpatient as scheduled. No formal physical therapy at this point. He will do his home exercises that he was taught in the hospital only and follow up as an outpatient.
== END 2016-10-13 11:12 | disposition home health service (06) | DRG 483 ==
LOC: ENRESERVTM → ENRESERVDT → C.ACU 04:57 → C.3E 06:50
PROVIDERS: ADMIT Orthopaedic Surgery Sports Medicine; ATTEND Orthopaedic Surgery Sports Medicine
PROC: 0RRJ00Z Replacement of Right Shoulder Joint with Reverse Ball and Socket Synthetic Substitute, Open Approach (ICD-10-PCS; principal; 2016-10-11 07:15)
DX: M19.011 Primary osteoarthritis, right shoulder (principal); D68.59 Other primary thrombophilia; E72.12 Methylenetetrahydrofolate reductase deficiency; M75.101 Unspecified rotator cuff tear or rupture of right shoulder, not specified as traumatic; M62.111 Other rupture of muscle (nontraumatic), right shoulder; M75.51 Bursitis of right shoulder; I10 Essential (primary) hypertension; J44.9 Chronic obstructive pulmonary disease, unspecified; E78.5 Hyperlipidemia, unspecified; I08.1 Rheumatic disorders of both mitral and tricuspid valves; M10.9 Gout, unspecified; G25.81 Restless legs syndrome; Z79.899 Other long term (current) drug therapy; G47.33 Obstructive sleep apnea (adult) (pediatric); I71.4 Abdominal aortic aneurysm, without rupture; E66.9 Obesity, unspecified; Z68.39 Body mass index [BMI] 39.0-39.9, adult; Z96.612 Presence of left artificial shoulder joint; Z96.652 Presence of left artificial knee joint; Z99.89 Dependence on other enabling machines and devices; Z86.718 Personal history of other venous thrombosis and embolism; Z86.711 Personal history of pulmonary embolism; Z87.891 Personal history of nicotine dependence; Z79.01 Long term (current) use of anticoagulants; Z79.51 Long term (current) use of inhaled steroids; Z79.891 Long term (current) use of opiate analgesic